=== PATIENT | female | born 1975 | race African-American/Black ===

== ENCOUNTER 2019-05-03 14:43 | Emergency (ER) | payer OTHER, SELFPAY ==
[2019-05-03] MEDS ORDERED: Sodium Chloride 0.9% 2,000 ML ONE (15:12)
[2019-05-03 15:23] LABS: #Basophils 0.1 thou/uL (0.0-0.2); #Eosinphils 0.1 thou/uL (0.0-0.7); #Lymphocytes 1.3 thou/uL (1.20-3.40); #Monocytes 0.5 thou/uL (0.11-0.59); #Neutrophils 8.9 thou/uL (1.40-6.50); %Basophils 0.6 % (0.0-1.0); %Eosinophils 0.6 % (0.0-10.0); %Lymphocytes 11.9 % (21.0-51.0); %Monocytes 4.7 % (0.0-10.0); %Neutrophils 82.2 % (42.0-75.0); Hemoglobin 8.9 g/dL (12.0-16.0); Mean Corpuscular HGB CONC 28.1 g/dL (32.0-36.0); Mean Corpuscular Hemoglobin 17.7 pg (27.0-31.0); Mean Corpuscular Volume 63.2 fL (78.0-98.0); Mean Platelet Volume 7.4 fL (7.4-10.4); Platelet Count 331 thou/uL (130-400); RBC Distribution Width 15.5 % (11.5-14.5); White Blood Cell (WBC) Count 10.9 thou/uL (4.8-10.8)
[2019-05-03 15:33] LABS: ALT (SGPT) 11 U/L (8-55); AST (SGOT) 16 U/L (5-34); Albumin 4.1 g/dL (3.5-5.0); Alkaline Phosphatase 71 U/L (40-110); Anion Gap 14 mmol/L (10-20); BUN (Urea Nitrogen) 14 mg/dL (7.0-18.7); Bilirubin, Total 0.3 mg/dL (0.2-1.2); Calc. Creatinine Clearance 0 mL/min (70-130); Calcium 9.3 mg/dL (7.8-10.44); Carbon Dioxide 22 mmol/L (22-29); Chloride 107 mmol/L (98-107); Estimated GFR-MDRD Greater than 90; Globulin 3.6 g/dL (2.4-3.5); Glucose 108 mg/dL (70-105); Potassium 3.6 mmol/L (3.5-5.1); Protein, Total 7.7 g/dL (6.0-8.3); Sodium 139 mmol/L (136-145)
--- NOTE | 2019-05-03 15:38 | RAD ---
EXAM: Chest one view: HISTORY: Dyspnea urinary retention, sepsis, fever COMPARISON: None FINDINGS: Heart size: Within normal limits. Lungs: Clear of acute process. No evidence for confluent pneumonia, pleural effusion, acute edema, or pneumothorax, or other signifi cant acute process. IMPRESSION: No significant acute intrathoracic disease.
[2019-05-03 15:45] LABS: Base Excess-Venous -0.5 mmol/L (-2.0 to 3.0); Bicarbonate (HCO3v) 24.6 mmol/L (22.0-28.0); CO2 Tension (PvCO2) 41.5 mmHg (40.0-50.0); Calcium, Ionized 1.17 mmol/L (See Comments:); Chloride 107 mmol/L (98-107); Hemoglobin - Calc 11.8 g/dL (12.0-16.0); Potassium 3.5 mmol/L (3.5-5.1); Sodium 143 mmol/L (138-145); T. Carbon Dioxide 25.9 mmol/L (22.0-28.0); vO2 Saturation-calc 71.7 % (60.0-85.0)
[2019-05-03] MEDS ORDERED: Acetaminophen 500 MG TAB ONE (16:07)
[2019-05-03 16:26] LABS: Bilirubin Negative (Negative); Blood, Urine Large (Negative); Clarity SL HAZY (Clear); Glucose, Urine (Dipstick) Negative (Negative); Leukocyte Trace (Negative); Nitrite Negative (Negative); Protein, Urine (Dipstick) Negative (Neg-Trace); Urobilinogen 0.2 mg/dL (Less than 2)
[2019-05-03 16:39] LABS: Bacteria/HPF Rare-Few HPF (None Seen); RBC/HPF 21-50 HPF (0-3); Squamous Epithelial 0-3 HPF (0-3)
== END 2019-05-03 19:47 | disposition home or self-care (01) ==
LOC: NAV ERS 14:43
DX: N39.0 Urinary tract infection, site not specified (principal); E86.0 Dehydration; R10.816 Epigastric abdominal tenderness; D50.9 Iron deficiency anemia, unspecified; K21.9 Gastro-esophageal reflux disease without esophagitis; F41.9 Anxiety disorder, unspecified; F41.0 Panic disorder [episodic paroxysmal anxiety]
CPT/HCPCS: 71045; 80053; 81003; 81015; 82330; 82803; 83605; 85025; 87040; 87077; 87086; 87186; 87804; 93005; 96360; 96361; 96365; 96366; J1956; J7050

== ENCOUNTER 2020-10-28 09:51 | Emergency (ER) | payer OTHER, SELFPAY ==
[2020-10-28] MEDS ORDERED: HYDROcodone/Acetaminophen 10/325 mg Tablet ONE (10:28)
[2020-10-28] MEDS ORDERED: Ondansetron ODT 4 MG TAB ONE (10:29)
[2020-10-28] MEDS ORDERED: Ketorolac Tromethamine 30 MG/ML VIAL ONE (10:29)
== END 2020-10-28 11:40 | disposition home or self-care (01) ==
LOC: NAV ERS 09:51
DX: M54.41 Lumbago with sciatica, right side (principal)
CPT/HCPCS: 99282; J1885; Q0162

== ENCOUNTER 2020-12-30 10:10 | Emergency (ER) | payer BC ==
[2020-12-30] MEDS ORDERED: Ketorolac Tromethamine 30 MG/ML VIAL ONE (10:23)
[2020-12-30] MEDS ORDERED: Morphine 4 MG/ML VIAL ONE ×2 (10:23→11:58)
[2020-12-30 11:10] LABS: Anion Gap 17 mmol/L (10-20); BUN (Urea Nitrogen) 10 mg/dL (7.0-18.7); Calc. Creatinine Clearance 0 mL/min (70-130); Calcium 9.5 mg/dL (7.8-10.44); Carbon Dioxide 19 mmol/L (22-29); Chloride 107 mmol/L (98-107); Glucose 116 mg/dL (70-105); Magnesium 1.6 mg/dL (1.6-2.6); Potassium 3.5 mmol/L (3.5-5.1); Sodium 139 mmol/L (136-145)
[2020-12-30 11:13] LABS: #Basophils 0.1 thou/uL (0.0-0.2); #Lymphocytes 1.9 thou/uL (1.20-3.40); #Monocytes 0.6 thou/uL (0.11-0.59); #Neutrophils 6.9 thou/uL (1.40-6.50); %Basophils 0.7 % (0.0-1.0); %Eosinophils 0.1 % (0.0-10.0); %Lymphocytes 19.8 % (21.0-51.0); %Monocytes 6.4 % (0.0-10.0); Anisocytosis SLIGHT = 6-15 cells (100X) (0-5/hpf); Hemoglobin 8.5 g/dL (12.0-16.0); Hypochromia SLIGHT = 6-15 cells (100X) (0-5/hpf); MDiff Complete? YES; Mean Corpuscular HGB CONC 27.5 g/dL (32.0-36.0); Mean Corpuscular Hemoglobin 17.3 pg (27.0-31.0); Mean Platelet Volume 8.4 fL (7.4-10.4); Microcytosis SLIGHT = 6-15 cells (100X) (0-5/hpf); Platelet Count 387 thou/uL (130-400); Platelet Morphology Comment Appears Adequate; RBC Distribution Width 18.1 % (11.5-14.5); Red Blood Cell (RBC) Count 4.92 mill/uL (4.20-5.40); White Blood Cell (WBC) Count 9.4 thou/uL (4.8-10.8)
[2020-12-30] MEDS ORDERED: levETIRAcetam 500 MG/100 ML PREMIX BAG ONE (11:56)
== END 2020-12-30 13:20 | disposition home or self-care (01) ==
LOC: NAV ERS 10:10
DX: M54.31 Sciatica, right side (principal)
CPT/HCPCS: 80048; 82550; 83735; 85025; 85379; 96374; 96375; 96376; J1885; J1953; J2270

== ENCOUNTER 2023-04-16 23:57 | Emergency (ER) | payer BC, SELFPAY ==
[2023-04-17] MEDS ORDERED: Diazepam 5 MG TAB ONE (00:17)
[2023-04-17] MEDS ORDERED: methylPREDNISolone Sod Succ/PF 125 MG/2 ML VIAL ONE (00:17)
[2023-04-17] MEDS ORDERED: Ketorolac Tromethamine 60 MG/2 ML VIAL ONE (00:17)
== END 2023-04-17 01:35 | disposition home or self-care (01) ==
LOC: NAV ERS 23:57
DX: G57.02 Lesion of sciatic nerve, left lower limb (principal); M79.652 Pain in left thigh; M62.838 Other muscle spasm; K21.9 Gastro-esophageal reflux disease without esophagitis; Z79.899 Other long term (current) drug therapy
CPT/HCPCS: 96372; 99283; J1885; J2930